=== PATIENT | female | born 1945 | race African-American/Black ===

== ENCOUNTER 2017-05-03 09:33 | Emergency (ER) | payer MEDICARE ==
[~2017-05-03] VITALS: Ht 177.8 cm; Wt 81.2 kg
[2017-05-03] MEDS ORDERED: SODIUM CHLORIDE 0.9% 1000ML 1,000 ML IV STA (09:52)
[2017-05-03] MEDS ORDERED: ONDANSETRON HCL INJ 2 MG/ML VIAL IV STA (09:52)
[2017-05-03] MEDS ORDERED: KETOROLAC TROMETHAMINE 30 MG/ML VIAL IV STA (09:52)
[2017-05-03] MEDS ORDERED: MORPHINE SULFATE 2 MG/ML SYR IV STA (09:52)
[2017-05-03 10:09] LABS: BASOPHILS % 0.2 % (0.0-1.0); EOSINOPHILS % 0.2 % (0.0-6.0); HEMOGLOBIN 11.6 g/dL (12.0-16.0); LYMPHOCYTES # (AUTO) 1.4 (1.0-3.2); MEAN CORPUSCULAR HEMOGLOBIN 28.6 pg (28-32); MEAN CORPUSCULAR HGB CONC 33.1 g/dL (31-35); MEAN CORPUSCULAR VOLUME 86.4 fL (81-99); MONOCYTES # (AUTO) 0.7 (0.2-0.8); MONOCYTES % 7.7 % (4.4-11.3); NEUTROPHILS # (AUTO) 7.2 (2.1-6.9); NEUTROPHILS % 76.6 % (38.7-80.0); PLATELET COUNT 198 x10e3/uL (140-360); RED BLOOD COUNT 4.05 x10e6/uL (3.6-5.1); RED CELL DISTRIBUTION WIDTH 13.4 % (11.7-14.4)
[2017-05-03 10:12] LABS: BILIRUBIN,URINE NEGATIVE (NEGATIVE); KETONES,URINE NEGATIVE (NEGATIVE); LEUKOCYTE ESTERASE ,URINE NEGATIVE (NEGATIVE); NITRITE,URINE NEGATIVE (NEGATIVE); PROTEIN,URINE DIPSTICK NEGATIVE (NEGATIVE); URINE UROBILINOGEN 0.2 mg/dL (0.2 - 1)
[2017-05-03 10:15] LABS: CLARITY,URINE SL CLOUDY (CLEAR); COLOR,URINE YELLOW (YELLOW)
[2017-05-03 10:25] LABS: EPITHELIAL CELLS,URINE RARE /LPF
[2017-05-03 10:26] LABS: ALANINE AMINOTRANSFERASE 19 IU/L (0-55); ALBUMIN 3.7 g/dL (3.5-5.0); ALBUMIN/GLOBULIN RATIO 0.9 (0.8-2.0); ALKALINE PHOSPHATASE 93 IU/L (40-150); ANION GAP 15.9 mmol/L (8-16); BLOOD UREA NITROGEN 12 mg/dL (7-26); BUN/CREATININE RATIO 12 (6-25); CALCIUM 10.2 mg/dL (8.4-10.2); CARBON DIOXIDE 24 mmol/L (22-29); CHLORIDE 104 mmol/L (98-107); CREATININE, SERUM 1.03 mg/dL (0.57-1.11); EST GLOMERULAR FILTRATION RATE > 60 ML/MIN (60-); GLUCOSE 175 mg/dL (74-118); LIPASE 16 U/L (8-78); POTASSIUM 3.9 mmol/L (3.5-5.1); SODIUM 140 mmol/L (136-145)
--- NOTE | 2017-05-03 11:06 | Diagnostic Imaging Report ---
PROCEDURE: CT ABDOMEN AND PELVIS WITHOUT CONTRAST TECHNIQUE: The abdomen and pelvis were scanned utilizing a multidetector helical scanner from the diaphragm to the lesser trochanter after the oral administration without IV or oral contrast material. Coronal and sagittal multiplanar reformations were obtained. DLP: 469.08 COMPARISON: None. INDICATIONS: LEFT FLANK PAIN FINDINGS: ABSENCE OF INTRAVENOUS CONTRAST DECREASES SENSITIVITY FOR DETECTION OF FOCAL LESIONS AND VASCULAR PATHOLOGY. LOWER THORAX: Normal. HEPATOBILIARY: No focal hepatic lesions. No biliary ductal dilatation. SPLEEN: No splenomegaly. PANCREAS: No focal masses or ductal dilatation. ADRENALS: No adrenal nodules. KIDNEYS/URETERS: No hydronephrosis, stones or solid mass lesions. PELVIC ORGANS/BLADDER: Unremarkable. PERITONEUM / RETROPERITONEUM: No free air or fluid. LYMPH NODES: No lymphadenopathy. VESSELS: Minimal atherosclerotic vascular calcification. GI TRACT: No distention or wall thickening. Diverticulosis without findings to suggest diverticulitis. BONES AND SOFT TISSUES: Lower spine facet arthrosis. IMPRESSION: 1. No acute abnormality within the abdomen or pelvis. 2. No evidence of calcified renal, ureteral or bladder stones. 3. Diverticulosis without evidence of suggest diverticulitis. Reginald Brasher D.O. Dictated by: Reginald Brasher D.O. on 05/03/2017 at 11:06 Electronically approved by: Reginald Brasher D.O. on 05/03/2017 at 11:06
[2017-05-03 12:46] VITALS: BP 120/57
[2017-05-08] MEDS ORDERED: LEVAQUIN500 MG PO (08:02)
[2017-05-08] MEDS ORDERED: FLAGYL500 MG PO (08:02)
[2017-05-08] MEDS ORDERED: PANTOPRAZOLE SO40 MG PO (08:02)
[2017-05-08] MEDS ORDERED: FERROUS SULFAT325 MG PO (08:06)
== END 2017-05-03 12:55 | disposition home or self-care (01) ==
LOC: ER 09:33
DX: M54.5 Low back pain (principal); I10 Essential (primary) hypertension; E78.5 Hyperlipidemia, unspecified
CPT/HCPCS: 36415; 74176; 80053; 81001; 83690; 85025; 93005; 96360; 96374; 99284; J1885; J2270; J2405; J7030

== ENCOUNTER 2017-05-06 07:01 | Inpatient (IN) | payer MEDICARE ==
[~2017-05-06] VITALS: Ht 177.8 cm; Wt 83.9 kg
--- OUTSIDE RECORDS SUMMARY | 2017-05-06 07:03 | XMS REPORT | Continuity of Care Document ---
Author Author [facility] Organization [facility] Address [address] [place] [address] Phone Unavailable Care Team Providers Care Lay Out Maker Name Role Phone TANGELA CEJA MD PCP Advance Directives No advance directive information available. Problems No problem information available. Medications No medication information available. Social History Smoking Status Start Date Stop Date Never Smoker Hospital Discharge Instructions No hospital discharge instruction information available. Plan of Care Discharge Date 05/03/17 12:55pm Disposition HOME, SELF-CARE Condition at Discharge Stable Instructions/Education Provided Back Pain Forms Provided Work/School Excuse Prescriptions See Medication Section Referrals TANGELA CEJA MD Address: [address] [facility] [address] [place] [address] Additional Instructions/Education Your diagnosis today is Acute Low Back Pain. Take Tylenol #3 for pain as needed and Robaxin for muscle spasms/pain as needed. Follow up with your doctor in 2 days. Return to ER for any worsening symptoms such as increased pain, bowel/bladder incintinence, pelvic numbness or fever. Functional Status No functional status information available. Allergies, Adverse Reactions, Alerts No known allergies. Immunizations No immunization information available. Vital Signs Acute Vital Signs Vital Response Date/Time Respiratory Rate 14 bpm (12 - 24) 05/03/2017 12:46pm Blood Pressure 120/57 mm Hg 05/03/2017 12:46pm Height 5 ft 10 in 05/03/2017 9:55am Weight 179 lb 05/03/2017 9:55am Body Mass Index 25.7 kg/m^2 05/03/2017 9:55am Results Laboratory Results Test Name Result Units Flags Reference Collection Date/Time Result Date/ Time Comments White Blood Count 9.40 x10e3/uL 4.8-10.8 05/03/2017 10:00am 05/03/2017 10:16am Red Blood Count 4.05 x10e6/uL 3.6-5.1 05/03/2017 10:00am 05/03/2017 10: 16am Hemoglobin 11.6 g/dL L 12.0-16.0 05/03/2017 10:00am 05/03/2017 10:16am Hematocrit 35.0 % 34.2-44.1 05/03/2017 10:00am 05/03/2017 10:16am Mean Corpuscular Volume 86.4 fL 81-99 05/03/2017 10:00am 05/03/2017 10: 16am Mean Corpuscular Hemoglobin 28.6 pg 28-32 05/03/2017 10:00am 2017 10:16am Mean Corpuscular Hemoglobin Concent 33.1 g/dL 31-35 05/03/2017 10:00am 05/03/2017 10:16am Red Cell Distribution Width 13.4 % 11.7-14.4 05/03/2017 10:00am 2017 10:16am Platelet Count 198 x10e3/uL 140-360 05/03/2017 10:00am 05/03/2017 10: 16am Neutrophils (%) (Auto) 76.6 % 38.7-80.0 05/03/2017 10:00am 05/03/2017 10:16am Lymphocytes (%) (Auto) 15.0 % L 18.0-39.1 05/03/2017 10:00am 05/03/2017 10:16am Monocytes (%) (Auto) 7.7 % 4.4-11.3 05/03/2017 10:00am 05/03/2017 10: 16am Eosinophils (%) (Auto) 0.2 % 0.0-6.0 05/03/2017 10:00am 05/03/2017 10: 16am Basophils (%) (Auto) 0.2 % 0.0-1.0 05/03/2017 10:00am 05/03/2017 10: 16am IM GRANULOCYTES % 0.3 % 0.0-1.0 05/03/2017 10:00am 05/03/2017 10:16am Neutrophils # (Auto) 7.2 H 2.1-6.9 05/03/2017 10:00am 05/03/2017 10: 16am Lymphocytes # (Auto) 1.4 1.0-3.2 05/03/2017 10:00am 05/03/2017 10: 16am Monocytes # (Auto) 0.7 0.2-0.8 05/03/2017 10:00am 05/03/2017 10:16am Eosinophils # (Auto) 0.0 0.0-0.4 05/03/2017 10:00am 05/03/2017 10: 16am Basophils # (Auto) 0.0 0.0-0.1 05/03/2017 10:00am 05/03/2017 10:16am Absolute Immature Granulocyte (auto 0.03 x10e3/uL 0-0.1 05/03/2017 10: 00am 05/03/2017 10:16am Urine Color YELLOW YELLOW 05/03/2017 10:00am 05/03/2017 10:15am Urine Clarity SL CLOUDY CLEAR 05/03/2017 10:00am 05/03/2017 10:15am Urine Specific [place] 1.010 1.010-1.025 05/03/2017 10:00am 2017 10:15am Urine pH 8 H 5 - 7 05/03/2017 10:00am 05/03/2017 10:15am Urine Leukocyte Esterase NEGATIVE NEGATIVE 05/03/2017 10:00am 2017 10:15am Urine Nitrite NEGATIVE NEGATIVE 05/03/2017 10:00am 05/03/2017 10: 15am Urine Protein NEGATIVE NEGATIVE 05/03/2017 10:00am 05/03/2017 10: 15am Urine Glucose (UA) NEGATIVE NEGATIVE 05/03/2017 10:00am 05/03/2017 10 :15am Urine Ketones NEGATIVE NEGATIVE 05/03/2017 10:00am 05/03/2017 10: 15am Urine Urobilinogen 0.2 mg/dL 0.2 - 1 05/03/2017 10:00am 05/03/2017 10: 15am Urine Bilirubin NEGATIVE NEGATIVE 05/03/2017 10:00am 05/03/2017 10: 15am Urine Blood NEGATIVE NEGATIVE 05/03/2017 10:00am 05/03/2017 10:15am Urine WBC NONE /HPF 0-5 05/03/2017 10:00am 05/03/2017 10:25am Urine RBC NONE /HPF 0-5 05/03/2017 10:00am 05/03/2017 10:25am Urine Bacteria NONE /HPF NONE 05/03/2017 10:00am 05/03/2017 10:25am Urine Epithelial Cells RARE /LPF NONE 05/03/2017 10:00am 05/03/2017 10: 25am Sodium Level 140 mmol/L 136-145 05/03/2017 10:00am 05/03/2017 10:27am Potassium Level 3.9 mmol/L 3.5-5.1 05/03/2017 10:00am 05/03/2017 10: 27am Chloride Level 104 mmol/L 98-107 05/03/2017 10:00am 05/03/2017 10:27am Carbon Dioxide Level 24 mmol/L 22-29 05/03/2017 10:00am 05/03/2017 10: 27am Anion Gap 15.9 mmol/L 8-16 05/03/2017 10:00am 05/03/2017 10:27am Blood Urea Nitrogen 12 mg/dL 7-26 05/03/2017 10:00am 05/03/2017 10: 27am Creatinine 1.03 mg/dL 0.57-1.11 05/03/2017 10:00am 05/03/2017 10:27am BUN/Creatinine Ratio 12 6-25 05/03/2017 10:00am 05/03/2017 10:27am Estimat Glomerular Filtration Rate > 60 ML/MIN 60- 05/03/2017 10:00am 05/03/2017 10:27am Ranges were taken from the National Kidney Disease Education Program and the National Kid[employer] Foundation literature. Reference ranges: 60 or greater: Normal 16-59 (for 3 consecutive months): Chronic kidney disease 15 or less: Kidney failure Glucose Level 175 mg/dL H 74-118 05/03/2017 10:00am 05/03/2017 10:27am Calcium Level 10.2 mg/dL 8.4-10.2 05/03/2017 10:00am 05/03/2017 10: 27am Total Bilirubin 0.6 mg/dL 0.2-1.2 05/03/2017 10:00am 05/03/2017 10: 27am Aspartate Amino Transf (AST/SGOT) 23 IU/L 5-34 05/03/2017 10:00am 05/03 10:27am Alanine Aminotransferase (ALT/SGPT) 19 IU/L 0-55 05/03/2017 10:00am 04/2017 10:27am Total Protein 7.8 g/dL 6.5-8.1 05/03/2017 10:00am 05/03/2017 10:27am Albumin 3.7 g/dL 3.5-5.0 05/03/2017 10:00am 05/03/2017 10:27am Globulin 4.1 g/dL H 2.3-3.5 05/03/2017 10:00am 05/03/2017 10:27am Albumin/Globulin Ratio 0.9 0.8-2.0 05/03/2017 10:00am 05/03/2017 10: 27am Alkaline Phosphatase 93 IU/L 40-150 05/03/2017 10:00am 05/03/2017 10: 27am Lipase 16 U/L 8-78 05/03/2017 10:00am 05/03/2017 10:27am Procedures Procedure Status Date Provider(s) CT of abdomen and pelvis without contrast Active 05/03/17 EDILBERTO NCIOLE MD Encounters Encounter Location Arrival/Admit Date Discharge/Depart Date Attending Provider Departed Emergency Room [facility] 05/03/17 9:33am 12:55pm EDILBERTO NICOLE MD
--- OUTSIDE RECORDS SUMMARY | 2017-05-06 07:03 | XMS REPORT ---
Author Author [facility] Address Unknown Phone Unavailable Care Team Providers Care Hot Stone Setter Name Role Phone EDILBERTO NICOLE Unavailable Unavailable Problems This patient has no known problems. Allergies, Adverse Reactions, Alerts This patient has no known allergies or adverse reactions. Medications This patient has no known medications. Results Test Description Test Time Test Comments Text Results Atomic Results Result Comments CT ABDOMEN/PELVIS WO [place] [address] Patient Name: ROC BERMUDEZ MR #: [id number] : 1945 Age/Sex: 72/F Req #: [id number] Adm Physician: Ordered by: EDILBERTO NICOLE MD Report #: [id number] Location: ER Room/Bed: Procedure: [id number] CT/CT ABDOMEN/PELVIS WO Exam Date: 05/03/17 Exam Time: 1015 REPORT STATUS: Signed PROCEDURE: CT ABDOMEN AND PELVIS WITHOUT CONTRAST TECHNIQUE: The abdomen and pelvis were scanned utilizing a multidetector helical scanner from the diaphragm to the lesser trochanter after the oral administration without IV or oral contrast material. Coronal and sagittal multiplanar reformations were obtained. DLP: 469.08 COMPARISON: None. INDICATIONS: LEFT FLANK PAIN FINDINGS: ABSENCE OF INTRAVENOUS CONTRAST DECREASES SENSITIVITY FOR DETECTION OF FOCAL LESIONS AND VASCULAR PATHOLOGY. LOWER THORAX: Normal. HEPATOBILIARY: No focal hepatic lesions. No biliary ductal dilatation. SPLEEN: No splenomegaly. PANCREAS: No focal masses or ductal dilatation. ADRENALS: No adrenal nodules. KIDNEYS/URETERS: No hydronephrosis, stones or solid mass lesions. PELVIC ORGANS/BLADDER: Unremarkable. PERITONEUM / RETROPERITONEUM: No free air or fluid. LYMPH NODES: No lymphadenopathy. VESSELS: Minimal atherosclerotic vascular calcification. GI TRACT: No distention or wall thickening. Diverticulosis without findings to suggest diverticulitis. BONES AND SOFT TISSUES: Lower spine facet arthrosis. IMPRESSION: 1. No acute abnormality within the abdomen or pelvis. 2. No evidence of calcified renal, ureteral or bladder stones. 3. Diverticulosis without evidence of suggest diverticulitis. Pankaj Campbell D.O. Dictated by: Pankaj Campbell D.O. on 2017 at 11:06 Electronically approved by: Pankaj Campbell D.O. on 2017 at 11:06 Dictated By: PANKAJ CAMPBELL DO [id number] Transcribed By: GEMMA on 05/03/17 1106 COPY TO: EDILBERTO NICOLE MD
[2017-05-06] MEDS ORDERED: OXYMETAZOLINE HCL 0.05% NAS 1 SPRAY BTL ONE (07:15)
[2017-05-06] MEDS ORDERED: PHENYLEPHRINE HCL 1% NA SPR 15 ML BTL ONE (07:36)
[2017-05-06] MEDS ORDERED: SODIUM CHLORIDE 0.9% 1000ML 1,000 ML IV STA (07:37)
[2017-05-06] MEDS ORDERED: PANTOPRAZOLE 40 MG 10ML VIAL IV STA (07:37)
[2017-05-06 07:47] LABS: BASOPHILS % 0.1 % (0.0-1.0); LYMPHOCYTES # (AUTO) 0.9 (1.0-3.2); LYMPHOCYTES % 7.6 % (18.0-39.1); MEAN CORPUSCULAR HEMOGLOBIN 28.3 pg (28-32); MEAN CORPUSCULAR VOLUME 85.7 fL (81-99); MONOCYTES # (AUTO) 0.7 (0.2-0.8); MONOCYTES % 5.9 % (4.4-11.3); NEUTROPHILS # (AUTO) 10.2 (2.1-6.9); PLATELET COUNT 205 x10e3/uL (140-360); RED CELL DISTRIBUTION WIDTH 12.8 % (11.7-14.4)
[2017-05-06] MEDS ORDERED: ONDANSETRON HCL INJ 2 MG/ML VIAL IV STA (07:51)
[2017-05-06 08:00] LABS: INR 1.18; PROTHROMBIN TIME 14.1 seconds (11.9-14.5)
[2017-05-06 08:01] LABS: PARTIAL THROMBOPLASTIN TIME 29.9 seconds (23.8-35.5)
[2017-05-06 08:07] LABS: ALANINE AMINOTRANSFERASE 20 IU/L (0-55); ALBUMIN/GLOBULIN RATIO 0.7 (0.8-2.0); ALKALINE PHOSPHATASE 69 IU/L (40-150); BLOOD UREA NITROGEN 14 mg/dL (7-26); BUN/CREATININE RATIO 18 (6-25); CALCIUM 9.7 mg/dL (8.4-10.2); CARBON DIOXIDE 22 mmol/L (22-29); CHLORIDE 95 mmol/L (98-107); CREATININE, SERUM 0.78 mg/dL (0.57-1.11); EST GLOMERULAR FILTRATION RATE > 60 ML/MIN (60-); GLUCOSE 148 mg/dL (74-118); HEMOGLOBIN 9.9 g/dL (12.0-16.0); SODIUM 125 mmol/L (136-145)
[2017-05-06] MEDS ORDERED: SODIUM CHLORIDE FLUSH 10 ML SYR INJ PRN (09:00)
[2017-05-06] MEDS: METRONIDAZOLE 500MG/NS 100ML 100 ML IV SCH ×2 (09:15→16:33)
[2017-05-06] MEDS: LEVOFLOXACIN 750MG/D5W 150ML 150 ML IV SCH (10:15)
[2017-05-06] MEDS ORDERED: LOSARTAN POTASS25 MG PO (12:15)
[2017-05-06] MEDS ORDERED: CARVEDILOL12.5 MG PO (12:15)
[2017-05-06] MEDS ORDERED: VITAMIN D31000 UNIT PO (12:15)
[2017-05-06] MEDS ORDERED: MULTIVITAMINS1 EAC7 PO (12:15)
[2017-05-06] MEDS ORDERED: PRAVASTATIN SOD10 MG PO (12:15)
[2017-05-06] MEDS ORDERED: FISH OIL PO (12:15)
[2017-05-06 13:22] VITALS: BP 173/74
[2017-05-06 14:23] VITALS: BP 173/74
[2017-05-06 16:05] VITALS: BP 152/66
[2017-05-06] MEDS: CARVEDILOL 12.5 MG TAB PO SCH (16:33)
[2017-05-06] MEDS ORDERED: PEG (High)/E-LYTE SOLN 4,000 ML BTL PO ONE (18:00)
[2017-05-06] MEDS ORDERED: BISACODYL 5 MG TAB EC PO ONE (18:00)
[2017-05-06 18:24] LABS: HEMATOCRIT 27.7 % (34.2-44.1); HEMOGLOBIN 9.1 g/dL (12.0-16.0)
--- NOTE | 2017-05-06 18:47 | Consultation ---
DATE OF CONSULTATION: May 06, 2017 This is a 72-year-old female very well known to me who has history of diverticulosis, presented to the hospital because of problems with rectal bleeding, bright red blood per rectum. The patient had a CAT scan done a few days ago, which showed diverticulosis without diverticulitis. He denies any abdominal pain at this point. Her workup so far revealed that her hemoglobin is 9.9, WBC 11.8. Sodium 125 and is normal. Her other medical problems are significant for hypertension, history of hyperlipidemia. ALLERGIES: NONE. SOCIAL HISTORY: Denies any alcohol use. HOME MEDICATIONS: Carvedilol, vitamin D3, losartan, multivitamins and . REVIEW OF SYSTEMS: Denies any chest pain. Denies any shortness of breath. Denies any dysphagia or odynophagia. Denies any dysuria or hematuria or any kind of syncopal episode. PHYSICAL EXAMINATION GENERAL: The patient is awake, alert, appears to be stable and not in any acute distress. VITAL SIGNS: Afebrile. HEENT: Normocephalic, atraumatic. Sclerae anicteric. NECK: Supple. HEART: Sounds regular. LUNGS: Clear. ABDOMEN: Soft. There is no distention at this point, is nontender. EXTREMITIES: No edema or clubbing. LABORATORY DATA: WBC 11.8, hemoglobin 9.9, sodium 125, BUN and creatinine is 14 and 0.7. IMPRESSION 1. Rectal bleeding, likely diverticular bleeding. 2. Hypertension. PLAN: Continue current care at this point. Follow labs and perform colonoscopy for further evaluation tomorrow and follow clinically. Job#: [id number] cc:TANGELA CEJA MD
[2017-05-06 20:00] VITALS: BP 140/65
[2017-05-06] MEDS ORDERED: SODIUM CHLORIDE 0.9% 250ML 250 ML ONE (23:56)
[2017-05-07] VITALS (8 sets, daily range): BP systolic 109–163; BP diastolic 60–72
[2017-05-07] MEDS: METRONIDAZOLE 500MG/NS 100ML 100 ML IV SCH ×4 (00:33→23:15)
[2017-05-07] MEDS ORDERED: LOSARTAN POTASSIUM 25 MG TAB PO PRN (04:15)
[2017-05-07] MEDS: SODIUM CHLORIDE 0.9% 1000ML 1,000 ML IV SCH ×2 (04:41→16:57)
--- NOTE | 2017-05-07 05:53 | History and Physical ---
PRIMARY CARE PHYSICIAN: Dr. March CHIEF COMPLAINT: Rectal bleeding. HISTORY OF PRESENT ILLNESS: This is a 72-year-old woman with a history of hypertension, who last week on Saturday went to the emergency room due to lower back and abdominal pain. She was started on pain medication and given IV treatment, and then went home from the ER. Patient returned on Saturday after developing rectal bleeding, which she states was severe with a lot of bright red blood. She denies any melena in the past few weeks. She states that the rectal bleeding stopped yesterday. The abdominal pain also resolved. Her last colonoscopy was 5 years ago, which she states showed no polyps. Prior to that, it showed 2 polyps. She does not use any aspirin, Plavix or any anticoagulants. Here she was found to have moderate anemia. She was admitted for further evaluation and management. PAST MEDICAL HISTORY: Hypertension, hyperlipidemia. PAST SURGICAL HISTORY: Hysterectomy, tubal ligation at age 31, appendectomy at age 16. ALLERGIES: PER ELECTRONIC MEDICAL RECORDS. FAMILY HISTORY/SOCIAL HISTORY: Patient is . She has 1 child. No alcohol, illicits or cigarettes. MEDICATIONS: Per electronic medical record. REVIEW OF SYSTEMS: Denies any dizziness or chest pain. PHYSICAL EXAMINATION VITAL SIGNS: Have been reviewed. GENERAL: A tired-appearing woman resting in bed. HEENT: Anicteric. Pupils respond to light. No oral lesions. CARDIOVASCULAR: Normal S1 and S2. LUNGS: Moderate breath sounds. ABDOMEN: Soft and nondistended. She has mild diffuse tenderness, which is minimal. No rebound or guarding. EXTREMITIES: No edema or calf tenderness. NEUROLOGICAL: Alert and oriented times 3. Moving all extremities. LABS: Reviewed. MEDICATIONS: Reviewed. ASSESSMENT AND PLAN: This is a 72-year-old woman with: 1. Rectal bleeding: Gastroenterology consulted. Will continue intravenous Protonix. Follow up H and H. 2. Moderate normocytic anemia: Will obtain anemia panel. 3. Diverticulosis: Could this be a diverticular bleed? Imaging does not show any diverticulitis. Will await endoscopy. 4. Hyponatremia: Rehydrate and reassess. 5. Hypertension: Continue beta yinka. 6. Hyperglycemia and overweight state: Will screen for diabetes and obtain a lipid panel. 7. Prophylaxis: Will use sequential compression devices and proton pump inhibitor. 8. Disposition: Monitor closely. Follow up H and H. Follow up gastroenterology recommendations. Follow up sodium levels. Job#: [id number] [place]
[2017-05-07 07:09] LABS: BASOPHILS % 0.1 % (0.0-1.0); EOSINOPHILS # (AUTO) 0.1 (0.0-0.4); EOSINOPHILS % 0.5 % (0.0-6.0); HEMATOCRIT 27.8 % (34.2-44.1); HEMOGLOBIN 9.2 g/dL (12.0-16.0); LYMPHOCYTES # (AUTO) 2.2 (1.0-3.2); LYMPHOCYTES % 16.8 % (18.0-39.1); MEAN CORPUSCULAR HEMOGLOBIN 28.8 pg (28-32); MEAN CORPUSCULAR HGB CONC 33.1 g/dL (31-35); MEAN CORPUSCULAR VOLUME 86.9 fL (81-99); MONOCYTES # (AUTO) 1.3 (0.2-0.8); MONOCYTES % 10.1 % (4.4-11.3); NEUTROPHILS # (AUTO) 9.4 (2.1-6.9); PLATELET COUNT 200 x10e3/uL (140-360); RED CELL DISTRIBUTION WIDTH 12.8 % (11.7-14.4)
[2017-05-07 07:28] LABS: ANION GAP 13.4 mmol/L (8-16); BLOOD UREA NITROGEN 8 mg/dL (7-26); BUN/CREATININE RATIO 11 (6-25); CALCIUM 9.6 mg/dL (8.4-10.2); CARBON DIOXIDE 24 mmol/L (22-29); CHLORIDE 107 mmol/L (98-107); CREATININE, SERUM 0.76 mg/dL (0.57-1.11); EST GLOMERULAR FILTRATION RATE > 60 ML/MIN (60-); GLUCOSE 101 mg/dL (74-118); POTASSIUM 3.4 mmol/L (3.5-5.1); SODIUM 141 mmol/L (136-145)
[2017-05-07 07:44] LABS: % IRON SATURATION 9 % (15-50); CHOL/HDL RATIO 3.8 (3.0-3.6); CHOLESTEROL 198 MD/DL (0-199); HDL CHOLESTEROL 52 MG/DL (40-60); IRON 17 ug/dL (50-170); LDL CHOLESTEROL 135 MG/DL (60-130); TOTAL IRON BINDING CAPACITY 182 ug/dL (261-478); TRANSFERRIN 130 mg/dL (180-382); TRIGLYCERIDES 55 MG/DL (0-149)
[2017-05-07 08:04] LABS: THYROID STIMULATING HORMONE 2.231 uIU/mL (0.350-4.940)
[2017-05-07] MEDS: PANTOPRAZOLE 40 MG 10ML VIAL IV SCH (08:57)
[2017-05-07] MEDS: MULTIVITAMINS/MINERALS TAB PO SCH (09:00)
[2017-05-07] MEDS: CARVEDILOL 12.5 MG TAB PO SCH ×2 (09:00→16:57)
[2017-05-07] MEDS: CHOLECALCIFEROL 1,000 UNIT TAB PO SCH (09:00)
[2017-05-07] MEDS: LEVOFLOXACIN 750MG/D5W 150ML 150 ML IV SCH (10:30)
[2017-05-07 12:03] LABS: HEMATOCRIT 26.7 % (34.2-44.1); HEMOGLOBIN 9.1 g/dL (12.0-16.0)
[2017-05-07] MEDS ORDERED: PROPOFOL IV EMULSION 10 MG/ML 20 ML VIAL ONE (13:19)
[2017-05-07] MEDS ORDERED: ACETAMINOPHEN 325 MG TAB PO PRN (13:45)
[2017-05-07] MEDS ORDERED: FENTANYL CITRATE/PF 100MCG/2 ML INJ ONE (14:52)
[2017-05-07] MEDS ORDERED: MIDAZOLAM HCL 2 MG/2 ML VIAL ONE (14:52)
[2017-05-07 18:14] LABS: HEMATOCRIT 26.8 % (34.2-44.1); HEMOGLOBIN 8.9 g/dL (12.0-16.0)
[2017-05-07] MEDS ORDERED: PRAVASTATIN 20 MG TAB PO SCH (21:00)
[2017-05-08 00:13] VITALS: BP 139/62
[2017-05-08 05:13] VITALS: BP 140/60
[2017-05-08 07:07] LABS: HEMATOCRIT 27.4 % (34.2-44.1); HEMOGLOBIN 8.8 g/dL (12.0-16.0)
[2017-05-08 07:35] VITALS: BP 142/65
[2017-05-08 07:54] LABS: ANION GAP 11.6 mmol/L (8-16); BLOOD UREA NITROGEN 11 mg/dL (7-26); BUN/CREATININE RATIO 14 (6-25); CALCIUM 8.9 mg/dL (8.4-10.2); CARBON DIOXIDE 25 mmol/L (22-29); CHLORIDE 108 mmol/L (98-107); CREATININE, SERUM 0.76 mg/dL (0.57-1.11); EST GLOMERULAR FILTRATION RATE > 60 ML/MIN (60-); GLUCOSE 91 mg/dL (74-118); POTASSIUM 3.6 mmol/L (3.5-5.1); SODIUM 141 mmol/L (136-145)
[2017-05-08] MEDS ORDERED: PANTOPRAZOLE SO40 MG PO (08:02)
[2017-05-08] MEDS ORDERED: FLAGYL500 MG PO (08:02)
[2017-05-08] MEDS ORDERED: LEVAQUIN500 MG PO (08:02)
[2017-05-08] MEDS ORDERED: FERROUS SULFAT325 MG PO (08:06)
[2017-05-08 08:08] VITALS: BP 142/65
--- NOTE | 2017-05-08 08:25 | Discharge Summary ---
PRINCIPAL DIAGNOSES 1. Acute ischemic colitis. 2. Rectal bleeding. 3. Diverticulosis. 4. Normocytic anemia, moderate. 5. Hyponatremia. 6. Hypertension. 7. Hyperglycemia with overweight state. Hemoglobin A1c 5.5, LDL 135 and triglycerides 55. 8. Iron deficiency anemia with iron level of 17, percent saturation of 9. SECONDARY DIAGNOSIS: Hypertension. CHIEF COMPLAINT: Rectal bleeding. HISTORY OF PRESENT ILLNESS: A 72-year-old woman with rectal bleeding. Refer to the H and P for further details. HOSPITAL COURSE: This is a 72-year-old woman who developed rectal bleeding. Underwent endoscopy that showed ischemic colitis. She was treated with PPI and antibiotics. Rectal bleeding has resolved for the past 2 days. She had normocytic anemia, which had remained stable. She had diverticulosis, but no diverticulitis. She had hyponatremia secondary to dehydration. The patient is doing better and currently appropriate for discharge and follow up. Hyponatremia has resolved. The patient is currently appropriate for discharge and follow up. DISCHARGE MEDICATIONS: Per electronic medical record. Ferrous sulfate, Flagyl, Levaquin for 5 days, and Protonix. FOLLOWUP: Primary care doctor in [address] San in 1 month. CONDITION ON DISCHARGE: Stable and improved. DISCHARGE LOCATION: Home. DISCHARGE INSTRUCTIONS: Small portion sizes for the next 5 days. MELISSA SPARKS MD Job#: [id number] [place]
[2017-05-08] MEDS: MULTIVITAMINS/MINERALS TAB PO SCH (09:00)
[2017-05-08] MEDS: PANTOPRAZOLE 40 MG 10ML VIAL IV SCH (09:00)
[2017-05-08] MEDS: CHOLECALCIFEROL 1,000 UNIT TAB PO SCH (09:00)
[2017-05-08] MEDS: CARVEDILOL 12.5 MG TAB PO SCH (09:00)
[2017-05-08] MEDS: METRONIDAZOLE 500MG/NS 100ML 100 ML IV SCH (10:00)
[2017-05-08] MEDS: LEVOFLOXACIN 750MG/D5W 150ML 150 ML IV SCH (11:00)
[2017-05-08 11:43] VITALS: BP 116/56
[2017-05-08 12:06] LABS: HEMATOCRIT 25.4 % (34.2-44.1); HEMOGLOBIN 8.5 g/dL (12.0-16.0)
== END 2017-05-08 15:19 | disposition home or self-care (01) | DRG 394 ==
LOC: ER 07:01 → ERHOLD 11:02 → MED/SURG3 12:19
PROVIDERS: ADMIT Internal Medicine; ATTEND Internal Medicine
PROC: 0DBM8ZX Excision of Descending Colon, Via Natural or Artificial Opening Endoscopic, Diagnostic (ICD-10-PCS; principal; 2017-05-07 12:30)
DX: K55.9 Vascular disorder of intestine, unspecified (principal); E87.1 Hypo-osmolality and hyponatremia; I10 Essential (primary) hypertension; K57.32 Diverticulitis of large intestine without perforation or abscess without bleeding; D50.9 Iron deficiency anemia, unspecified; K57.90 Diverticulosis of intestine, part unspecified, without perforation or abscess without bleeding; K64.8 Other hemorrhoids; E86.0 Dehydration
CPT/HCPCS: 36415; 45378; 45380; 80048; 80053; 80061; 82728; 83036; 83540; 84443; 84466; 85014; 85018; 85025; 85610; 85730; 86850; 86900; 88305; 93005; 96360; 96365; 96374; 99284; J2250; J2405; J7030; J7050

== ENCOUNTER 2017-12-03 14:04 | Emergency (ER) | payer MEDICARE ==
[~2017-12-03] VITALS: Ht 177.8 cm; Wt 83.9 kg
[~2017-12-03 14:04] MED LIST: CARVEDILOL12.5 MG PO; FERROUS SULFAT325 MG PO; FISH OIL PO; FLAGYL500 MG PO; LEVAQUIN500 MG PO; LOSARTAN POTASS25 MG PO; MULTIVITAMINS1 EAC7 PO; PANTOPRAZOLE SO40 MG PO; PRAVASTATIN SOD10 MG PO; VITAMIN D31000 UNIT PO
[2017-12-03] MEDS ORDERED: TRAMADOL HCL 50 MG TAB PO ONE (17:00)
== END 2017-12-03 18:01 | disposition left against medical advice (07) ==
LOC: ER 14:04
DX: S09.90XA Unspecified injury of head, initial encounter (principal)

== ENCOUNTER 2019-10-20 20:25 | Emergency (ER) | payer SELFPAY ==
--- OUTSIDE RECORDS SUMMARY | 2019-10-20 21:34 | XMS REPORT | Summary of Care ---
Author Author [facility] [place] Organization [facility] [place] Address Unknown Phone Unavailable Encounter [facility] Ezekiel(FIN) [id number] Date(s): 01/27/18 - 01/27/18 [facility] - [address] [address] [phone] Encounter Diagnosis Age-related osteoporosis without current pathological fracture (Final) - 01/31/18 Asymptomatic menopausal state (Final) - Discharge Disposition: Home or Self Care Attending Physician: Raul March MD Referring Physician: Raul March MD Vital Signs No data available for this section Problem List Condition Effective Dates Status Health Status Informan t High blood Resolved pressure(Confirmed) Hypercholesteremia(C Resolved onfirmed) Allergies, Adverse Reactions, Alerts No Known Medication Allergies Medications No data available for this section Results No data available for this section Immunizations No data available for this section Procedures Procedure Date Related Diagnosis Body Site Status Hysterectomy Completed Social History Social History Type Response Smoking Status Never smoker; Previous john tment: None; Exposure to Tobacco Smoke None; Cigarette Smoking Last 365 Days No; Reg Smoking Cessation Counseling No entered on: 12/03/17 Assessment and Plan No data available for this section
--- OUTSIDE RECORDS SUMMARY | 2019-10-20 21:34 | XMS REPORT | Summary of Care ---
Author Author [facility] [place] Organization [facility] [place] Address Unknown Phone Unavailable Encounter [facility] Ezekiel(FIN) [id number] Date(s): 05/31/17 - 05/31/17 [facility] Outpatient Imaging - [address] [address] [phone] Encounter Diagnosis Pain in left shoulder (Final) - 06/06/17 Primary osteoarthritis, left shoulder (Final) - Bursitis of left shoulder (Final) - Discharge Disposition: Home or Self Care Attending Physician: Raul March MD Vital Signs No data available for this section Problem List Condition Effective Dates Status Health Status Informan t High blood Resolved pressure(Confirmed) Hypercholesteremia(C Resolved onfirmed) Allergies, Adverse Reactions, Alerts Substance Reaction Severity Status NKDA Active Medications No data available for this section Results No data available for this section Immunizations No data available for this section Procedures Procedure Date Related Diagnosis Body Site Status Hysterectomy Completed Social History Social History Type Response Smoking Status Never smoker; Previous john tment: None; Exposure to Tobacco Smoke None; Cigarette Smoking Last 365 Days No; Reg Smoking Cessation Counseling No entered on: 01/18/17 Assessment and Plan No data available for this section
--- OUTSIDE RECORDS SUMMARY | 2019-10-20 21:34 | XMS REPORT | Continuity of Care Document ---
Author Author [employer] 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 Name Role Phone [employer] Information [employer] Unavailable Un available Problems Problem Status Onset Date Classification Date Reported Comments Source Cough 04/1004/12/2019 [facility] Acute upper respiratory infection, unspecified 04/10/2019 04/12/2019 [facility] COUGH Active 04/10/2019 [facility] Age-related osteoporosis without current pathological fracture 01/31/2018 08/17/2018 [facility] [place] FALL HEAD INJURY Active 12/03/2017 [facility] Unspecified injury of head, initial encounter 12/03/2017 06/22/2018 [facility] Pain in left shoulder 06/07/2017 09/06/2017 [facility] [place] Unspecified asthma, uncomplicated 01/18/2017 01/21/2017 [facility] Acute laryngitis 12/27/2016 12/30/2016 [facility] THROAT PAIN Active 12/27/2016 [facility] HEADACE/FAINT Active 08/23/2013 [facility] Discharge Diagnosis: Acute hyperventilation 08/23/2013 08/25/2013 [facility] UPPER THIGH PAIN, MERALGIA PAESTHETIGA Active 03/07/2011 [facility] Hypertensive disorder, systemic arterial (disorder) Resolved Problem 04/12/2019 [facility] [place] Primary osteoarthritis, left shoulder 09/06/2017 [facility] [place] Bursitis of left shoulder 09/06/2017 [facility] [place] Asymptomatic menopausal state 08/17/2018 [facility] [place] Hypercholesterolemia (disorder) Resolved Problem 11/2019 [facility] [place] a Fall from bed, initial encounter 06/22/2018 [facility] Essential (primary) hypertension 06/22/2018 [facility] Medications Medication Details Route Status Patient Instructions Ordering Provider Order Date Source benzonatate 200 MG Oral Capsule [Tessalon] 200 mg = 1 cap, PO, TID, X 7 day, # 21 cap, 0 Refill(s) Active 04/10/2019 [facility] Tylenol 650 mg, Route: PO, Rusty g form: TAB, ONCE, Dosing Weight 84.545, kg, Priority: STAT, Start date: 12/03/17 17:54:00 CDT, Stop date: 12/03/17 17:54:00 CDT Inactiv e 12/03/2017 [facility] predniSONE 20 mg oral tablet 2 0 mg = 1 tab, PO, BID, Start Saturday., X 4 day, # 8 tab, 0 Refill(s) Active 01/19/2017 [facility] 200 ACTUAT Albuterol 0.09 MG/ACTUAT Mete red Dose Inhaler [ProAir HFA] 2 puff, INHALER, Q4H, PRN for wheezing, # 8.5 gm, 0 Refill(s) Active 01/19/2017 [facility] Albuterol 0.83 MG/ML Inhalant Solution 2.49 mg = 3 mL, INHALATION, Q6H, PRN wheezing, coughing, or shortness of breath, # 1 box, 1 Refill(s) Active 01/19/2017 [facility] Nebulizer 1 ea, MISC, ONCALL, # 1 ea, 0 Refill(s) Active 01/19/2017 [facility] Albuterol 0.833 MG/ML / Ipratropium Brom willow 0.167 MG/ML Inhalant Solution [DuoNeb] 6 mL, Route: NEB, Drug Form: SOLN, Dosin g Weight 83.636, kg, ONCE, PRN Respiratory Protocol, Start date: 01/18/17 17:21:00 [employer] 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 Inactive 12/27/2016 [facility] Benadryl 50 mg, 2 tab, Route: PO, Drug form: TAB, ONCE, Dosing Weight 84.091, kg, Priority: STAT, Start date: 12/27/16 0:48:00 CDT, Stop date: 12/27/16 0:48:00 CDT Inactive 12/27/2016 [facility] 200 ACTUAT Albuterol 0.09 MG/ACTUAT Mete red Dose Inhaler [ProAir HFA] 2 puff, INHALER, Q4H, PRN for wheezing, # 8.5 gm, 0 Refill(s) Active 12/21/2016 [facility] predniSONE 20 mg oral tablet 2 0 mg = 1 tab, PO, BID, X 4 day, # 8 tab, 0 Refill(s) Active 12/21/2016 [facility] Robitussin-AC oral syrup 10 ml , PO, Q4H, PRN for cough, Do not take and drive as this med causes sedation., # 120 mL, 0 Refill(s) Active 12/21/2016 [facility] Azithromycin 5 Day Dose Pack 250 mg oral tablet See Instructions, Take 2 tablets by mouth the first day then 1 tablet by mouth days 2-5., X 5 day, # 6 tab, 0 Refill(s) Active 12/21/2016 [facility] Albuterol 0.833 MG/ML / Ipratropium Brom willow 0.167 MG/ML Inhalant Solution [DuoNeb] 3 ml, Route: NEB, Drug Form: Khloe PIERCE g Weight 84.091, kg, ONCE, PRN Respiratory Protocol, Start date: 12/21/16 16:58:00 CDT Inactive 12/21/2016 [facility] Allergies, Adverse Reactions, Alerts Substance Category Reaction Severity Reaction type Status Date Reported Comments Source No Known Medication Allergies Assertion Drug aller gy [facility] Immunizations No Data Provided for This Section Results No Data Provided for This Section Pathology Reports No Data Provided for This Section Diagnostic Reports Report Value Date Source Chest 2 views DX PROCEDURE INF ORMATION: Exam: XR Chest, 2 Views Exam date and time: 04/10/2019 1:20 PM Age: 74 years old Clinical indication: Condition or disease; Additional info: /persistent coughing for over 1 week TECHNIQUE: Imaging protocol: XR of the chest Views: 2 views. Other technique: 2 views, frontal and lateral. COMPARISON: CHEST 2 VIEWS DX 01/18/2017 4:54 PM FINDINGS: Lungs: No infiltrates or other focal abnormalities. Pleural space: No pleural effusions. No pneumothorax. Heart/Mediastinum: The heart is normal in size. Bones/joints: No significant osseous abnormalities are seen. IMPRESSION: No active or acute process within the chest. Arnold Camarillo MD On 04/10/2019 13:35:47; [id number] 04/10/2019 [facility] Bone [facility] [employer] [facility] BONE DENSITY ASSESSMENT: 01/27/2018 CLINICAL DATA: Post menopausal. Age-Related Osteoporosis Without Current Pathological Fracture/M81.0 FINDINGS: Bone density evaluation was performed 01/27/2018 on the right femur neck using a Hologic unit. The BMD average for the exam is 0.612 g/cm2. The T-score is - 2.10 and the Z-score is -0.90. This matches the World Health Organization's criteria for osteopenia and places the patient at a medium risk for fracture. An additional bone density evaluation was performed 01/27/2018 on the left femur neck using a Hologic unit. The BMD average for the exam is 0.648 g/cm2. The T- score is -1.80 and the Z-score is -0.70. This matches the World Health Organization's criteria for osteopenia and places the patient at a medium risk for fracture. An additional bone density evaluation was performed 01/27/2018 on the right hip using a Hologic unit. The BMD average for the exam is 0.715 g/cm2. The T-score is -1.90 and the Z-score is -0.90. This matches the World Health Organization's criteria for osteopenia and places the patient at a medium risk for fracture. An additional bone density evaluation was performed 01/27/2018 on the left hip using a Hologic unit. The BMD average for the exam is 0.706 g/cm2. The T-score is -1.90 and the Z-score is -0.90. This matches the World Health Organization's criteria for osteopenia and places the patient at a medium risk for fracture. An additional bone density evaluation was performed 01/27/2018 on the AP L1-L3 region of spine using a Hologic unit. The BMD average for the exam is 0.738 g/cm2. The T-score is -2.50 and the Z-score is -1.10. This matches the World Health Organization's criteria for osteoporosis and places the patient at a high risk for fracture. IMPRESSION: OSTEOPOROSIS Patient is at high risk for fracture. This exam was interpreted at [id number] for NISA Bello 15. Moise Kurtz M.D., cm/ta:01/27/2018 13:10:52 Iron Molder Helper(s): Nirali Blanchard RT(R)(M), [facility] 01/27/2018 [facility] [place] Brain wo contrast CT Patient N bridger: ROC BERMUDEZ : 1945. Age: 72 years. Gender: Female. MR: [id number]. Location: [facility]. Provider: Mary Gómez. EXAM: Brain wo contrast CT. 12/03/2017 5:54 PM CDT PROVIDED CLINICAL HISTORY: Head trauma after a fall of bed. TECHNIQUE: Contiguous axial images from the skull base to the vertex without intravenous contrast. Coronal and sagittal reformats. EXPOSURE: Total exam DLP is 978.72 mGy-cm. COMPARISON: MR-Brain performed January 02, 2012. FINDINGS: BRAIN: No acute transcortical infarct. No clinically significant white matter disease. No brain parenchymal contusion or edema. No intracranial hemorrhage or other fluid collection. No intracranial mass. Age-consistent brain parenchymal volume. VENTRICLES / CISTERNS / SHIFT: No hydrocephalus. No significant effacement of the basal cisterns or foramen magnum. No significant midline shift. BONES / SCALP: No significant extracranial soft tissue abnormality. No acute depressed fracture of the calvarium or skull base. No aggressive bone lesions. IMAGED SINUSES / MASTOIDS: No significant sinus mucosal thickening. No significant paranasal sinus fluid. No significant fluid in the imaged mastoid air cells. IMPRESSION: 1. No definite CT evidence of acute int racranial abnormality. 2. No acute fracture. 3. No significant interval change of th e intracranial findings allowing for differences between CT and MR. SL: [id number] 12/03/2017 [facility] Shoulder wo contrast MRI EXAMI NATION: MR left shoulder without contrast HISTORY: M25.512 Pain in left shoulder; lateral left shoulder pain and limited range of motion; left rotator cuff tear; left glenohumeral chondrosis COMPARISON: There are no radiographs available for review. TECHNIQUE: Multiplanar, multisequence magnetic resonance imaging of the left shoulder is performed with a local coil. Transverse, oblique coronal, and oblique sagittal images are obtained. FINDINGS: Biceps: The long head of the biceps tendon remains attached at the superior bicipital labral complex without dislocation or subluxation. Labrum: There is degenerative tearing of the anterior labrum with focal irregularity of the labral tissue and abnormal labral morphology. There is also degeneration of the superior glenoid labrum without discrete superior labral tear. Rotator cuff tendons: There is high-grade, partial-thickness, interstitial tearing of the supraspinatus tendon involving both the footprint and critical zone, proximal to the footprint, measuring approximately 2.2 cm in anteroposterior dimension and involving up to 75% of the central tendon thickness. There is underlying severe supraspinatus and mild infraspinatus tendinosis, but the infraspinatus tendon remains intact. The teres minor tendon is intact. There is a moderate grade, partial-thickness, interstitial tear involving the cranial fibers of the subscapularis tendon measuring 1.4 cm in craniocaudal dimension and involving up to 50% of the central tendon thickness. There is underlying moderate subscapularis tendinosis, but no full-thickness subscapularis tendon tear. Muscles: There is normal signal intensity and muscle bulk of the rotator cuff musculature. Acromio-osseous outlet: There is a type II, anterolaterally downsloping acromion without discrete subacromial spur. There is no os acromiale. The coracoacromial and coracoclavicular ligaments are intact. There is mild degenerative arthrosis of the acromioclavicular joint. Bone: Osseous degenerative changes are noted at the acromioclavicular joint. There are no acute fractures. There are no suspicious bone marrow replacing lesions. Cartilage: Again, there is mild degenerative arthrosis of the acromioclavicular joint with associated chondrosis. There is moderate glenohumeral chondrosis with multiple foci of high-grade, deep partial thickness to near full-thickness chondrosis involving the superomedial and medial humeral head and involving the superior and central aspect of the glenoid. Soft tissue: There is a small to moderate amount of fluid in the subacromial- subdeltoid bursa. There is a large glenohumeral joint effusion. There are several cartilaginous loose bodies layering within the posterior aspect of the glenohumeral joint space measuring up to 1 cm in diameter. There is also synovitic debris within the subcoracoid recess. The inferior glenohumeral capsular ligaments are intact. IMPRESSION: 1. High-grade, partial-thickness, inters titial tearing of the left supraspinatus tendon involving both the footprint and critical zone, proximal to the footprint, with measurements as above. There is underlying severe left supraspinatus and mild left infraspinatus tendinosis, but the infraspinatus tendon remains intact and there is no left supraspinatus or infraspinatus muscular fatty atrophy. 2. Moderate grade, partial-thickness, in terstitial tear involving the cranial fibers of the left subscapularis tendon with measurements as above. There is underlying moderate left subscapularis tendinosis, but no full-thickness subscapularis tendon tear and no left subscapularis muscular fatty atrophy. 3. Moderate left glenohumeral chondrosis with multiple foci of high-grade, deep partial thickness to near full-thickness chondrosis involving the superomedial and medial humeral head and involving the superior and central aspect of the glenoid. 4. Degenerative tearing of the anterior left glenoid labrum with focal irregularity of the labral tissue and abnormal labral morphology. There is also degeneration of the superior left glenoid labrum without discrete superior labral tear. 5. Large left glenohumeral joint effusio n with multiple cartilaginous loose bodies layering within the posterior aspect of the glenohumeral joint space, as well as, synovitic debris within the subcoracoid recess. 6. Mild left acromioclavicular degenerat yoli arthrosis. 7. Mild to moderate left subacromial sub deltoid bursitis. 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 IMPRESSION: Stable cardiac silhouette and mediastinum. Tortuous thoracic aorta. The lungs are mildly hyperexpanded. Tiny calcified granuloma is present within the left upper lobe. No focal consolidation, significant pleural effusion or pneumothorax. Mild dextroscoliosis. SL: [id number] 01/18/2017 [facility] Chest 1view DX CHEST 1 VIEW INDICATION: Cough and congestion since Saturday. COMPARISON: None. FINDINGS: The lungs are clear. The pleura, cardiomediastinal silhouette and bony thorax are normal. IMPRESSION: Negative. END IMPRESSION SL: [id number] 12/21/2016 [facility] Pelvis w Pelvis Transvaginal US ULTRASOUND OF THE PELVIS History: 70-year-old female with left pelvic and perineal pain for the last 4 months. TECHNIQUE: Real-time yin-scale imaging supplemented with color Doppler of the pelvis was performed transabdominally through the distended urinary bladder and with transvaginal technique. COMPARISON: Pelvis magnetic resonance imaging 05/15/2008. FINDINGS: The urinary bladder is moderate distended with normal morphology. The vaginal cuff is unremarkable. The uterus and adnexa appear absent. There is no pelvic mass seen. There is no free fluid in pelvis. Soft tissues of pelvis as visualized are unremarkable. IMPRESSION: Negative pelvis ultrasound exam in patient status post hysterectomy and oophorectomy. No adnexal mass seen. 11/11/2015 [facility] Consultation Notes No Data Provided for This Section Discharge Summaries No Data Provided for This Section History and Physicals No Data Provided for This Section Vital Signs Vital Sign Value Date Comments Source Heart Rate 78 04/10/2019 [facility] Respitory Rate 18 04/10/2019 [facility] Systolic (mm Hg) 145 04/10/2019 [facility] Diastolic (mm Hg) 97 04/10/2019 [facility] Heart Rate 75 04/10/2019 [facility] Respitory Rate 18 04/10/2019 [facility] Systolic (mm Hg) 168 04/10/2019 [facility] Diastolic (mm Hg) 77 04/10/2019 [facility] Systolic (mm Hg) 179 04/10/2019 [facility] Diastolic (mm Hg) 79 04/10/2019 [facility] Heart Rate 75 04/10/2019 [facility] Respitory Rate 18 04/10/2019 [facility] Temperature Oral (F) 98.0 F 04/10/2019 [facility] Height 175.26 cm 04/10/2019 [facility] BMI Calculated 26.56 04/10/2019 [facility] Weight 81.591 04/10/2019 [facility] Temperature Oral (F) 96.9 F 12/04/2017 [facility] Rate 61 12/04/2017 [facility] Systolic (mm Hg) 159 12/04/2017 [facility] Diastolic (mm Hg) 70 12/04/2017 [facility] Respitory Rate 20 12/04/2017 [facility] Weight 84.545 12/03/2017 [facility] Respitory Rate 20 12/03/2017 [facility] Heart Rate 63 12/03/2017 [facility] BMI Calculated 26.74 12/03/2017 [facility] Height 177.8 cm 12/03/2017 [facility] Systolic (mm Hg) 174 12/03/2017 [facility] Diastolic (mm Hg) 76 12/03/2017 [facility] Temperature Oral (F) 97.0 F 12/03/2017 [facility] Heart Rate 79 01/19/2017 [facility] Systolic (mm Hg) 192 01/19/2017 [facility] Diastolic (mm Hg) 81 01/19/2017 [facility] Respitory Rate 18 01/19/2017 [facility] BMI Calculated 26.46 01/18/2017 [facility] Weight 83.636 01/18/2017 [facility] Height 177.8 cm 01/18/2017 [facility] Systolic (mm Hg) 189 01/18/2017 [facility] Diastolic (mm Hg) 80 01/18/2017 [facility] Temperature Oral (F) 97.1 F 01/18/2017 [facility] Respitory Rate 18 01/18/2017 [facility] Heart Rate 76 01/18/2017 [facility] Systolic (mm Hg) 167 12/27/2016 [facility] Diastolic (mm Hg) 72 12/27/2016 [facility] Weight 84.091 12/27/2016 [facility] Temperature Oral (F) 98.1 F 12/27/2016 [facility] Heart Rate 79 12/27/2016 [facility] Respitory Rate 18 12/27/2016 [facility] Height 177.8 cm 12/27/2016 [facility] BMI Calculated 26.6 12/27/2016 [facility] Systolic (mm Hg) 190 12/27/2016 [facility] Diastolic (mm Hg) 86 12/27/2016 [facility] Systolic (mm Hg) 142 12/21/2016 [facility] Diastolic (mm Hg) 86 12/21/2016 [facility] Respitory Rate 20 12/21/2016 [facility] Heart Rate 76 12/21/2016 [facility] Systolic (mm Hg) 156 12/21/2016 [facility] Diastolic (mm Hg) 82 12/21/2016 [facility] Respitory Rate 18 12/21/2016 [facility] Heart Rate 72 12/21/2016 [facility] Weight 84.091 12/21/2016 [facility] BMI Calculated 26.6 12/21/2016 [facility] Respitory Rate 20 12/21/2016 [facility] Systolic (mm Hg) 150 12/21/2016 [facility] Diastolic (mm Hg) 78 12/21/2016 [facility] Height 177.8 cm 12/21/2016 [facility] Temperature Oral (F) 96.2 F 12/21/2016 [facility] Heart Rate 75 12/21/2016 [facility] Weight 70.455 08/24/2013 [facility] BMI Calculated 25.85 08/24/2013 [facility] Height 165.1 cm 08/24/2013 [facility] Systolic (mm Hg) 180 08/24/2013 [facility] Diastolic (mm Hg) 78 08/24/2013 [facility] Respitory Rate 20 08/24/2013 [facility] Heart Rate 84 08/24/2013 [facility] Temperature Oral (F) 97.3 F 08/24/2013 [facility] Encounters Location Location Details Encounter Type Encounter Number Reason For Visit Attending Provider ADM Date DC Date Status Source [facility] Outpatient [id number] UPPER THIGH PAIN, MERALGIA PAESTHETIGA INGRID CARANDANG 03/07/2011 Active [facility] [id number] 04 Dorys Fish Jr 08/24/2013 08/24/2013 [facility] [place] [id number] 01 Isaias Cardoza 11/11/2015 11/12/2015 [facility] [place] [facility] [id number] Elfego Solo 12/21/2016 12/21/2016 [facility] [id number] Javier Strickland 12/27/2016 12/27/2016 [facility] [id number] Mason العلي 01/18/2017 01/19/2017 [facility] [place] [facility] [id number] 02 Raul March 05/31/2017 06/01/2017 [facility] [place] [facility] [id number] Nelson Hanna 12/03/2017 12/04/2017 [facility] [place] [facility] [id number] 03 Raul March 01/27/2018 01/28/2018 [facility] [id number] Primitivo Eng 04/10/2019 04/10/2019 [facility] Procedures Procedure Code Date Perfomer Comments Source Hysterectomy [id number] [facility] Assessment and Plan No Data Provided for This Section Plan of Care No Data Provided for This Section Social History Social History Date Source Social History TypeResponse Smoking Status Never smoker; Previous treatment: None; Exposure to Tobacco Smoke None; Cigarette Smoking Last 365 Days No; Reg Smoking Cessation Counseling No entered on: 04/10/19 04/10/2019 [facility] Social History TypeResponse Smoking Status Never smoker; Previous treatment: None; Exposure to Tobacco Smoke None; Cigarette Smoking Last 365 Days No; Reg Smoking Cessation Counseling No entered on: 12/03/17 12/03/2017 [facility] Family History No Data Provided for This Section Advance Directives No Data Provided for This Section Functional Status No Data Provided for This Section
--- OUTSIDE RECORDS SUMMARY | 2019-10-20 21:34 | XMS REPORT | Summary of Care ---
Author Author [facility] Organization [facility] Address Unknown Phone Unavailable Encounter COLE Falcon(CISCO) [id number] Date(s): 12/21/16 - 12/21/16 [facility] [address] [place] [place], [place] [address]- [phone] Discharge Diagnosis: Cough in adult patient Discharge Disposition: Home or Self Care Attending Physician: Elfego Solo MD Vital Signs 1 2 3 Most recent to oldest [Reference Range]: 177.8 cm (12/21/16 3:55 PM) Height 96.2 DegF *LOW* (12/21/16 3:55 PM) Temperature Oral [96.4-99.1 DegF] 142/86 mmHg *HI* (12/21/16 6:00 PM) 156/82 mmHg *HI* (12/21/16 5:00 PM) 150/78 mmHg *HI* (12/21/16 3:55 PM) Blood Pressure [90-140/60-90 mmHg] 20 BRMIN (12/21/16 6:00 PM) 18 BRMIN (12/21/16 5:00 PM) 20 BRMIN (12/21/16 3:55 PM) Respiratory Rate [14-20 BRMIN] 76 bpm (12/21/16 6:00 PM) 72 bpm (12/21/16 5:00 PM) 75 bpm (12/21/16 3:55 PM) Peripheral Pulse Rate [60-100 bpm] 84.091 kg (12/21/16 3:55 PM) Weight 26.6 m2 (12/21/16 3:55 PM) Body Mass Index Problem List Condition Effective Dates Status Health Status Informan t High blood Resolved pressure(Confirmed) Allergies, Adverse Reactions, Alerts Substance Reaction Severity Status NKDA Active Medications Azithromycin 5 Day Dose Pack 250 mg oral tablet See Instructions, Take 2 tablets by mouth the first day then 1 tablet by mouth d ays 2-5., X 5 day, # 6 tab, 0 Refill(s) Start Date: 12/21/16 Stop Date: 12/26/16 Status: Ordered DuoNeb inhalation solution 3 ml, Route: NEB, Drug Form: SOLN, Dosing Weight 84.091, kg, ONCE, PRN Respirato ry Protocol, Start date: 12/21/16 16:58:00 CDT Start Date: 12/21/16 Stop Date: 12/21/16 Status: Completed predniSONE 20 mg oral tablet 20 mg = 1 tab, PO, BID, X 4 day, # 8 tab, 0 Refill(s) Start Date: 12/21/16 Stop Date: 12/25/16 Status: Ordered ProAir HFA 90 mcg/inh inhalation aerosol with adapter 2 puff, INHALER, Q4H, PRN for wheezing, # 8.5 gm, 0 Refill(s) Start Date: 12/21/16 Status: Ordered Robitussin-AC oral syrup 10 ml, PO, Q4H, PRN for cough, Do not take and drive as this med causes sedation ., # 120 mL, 0 Refill(s) Start Date: 12/21/16 Stop Date: 12/22/17 Status: Ordered Results No data available for this section Immunizations No data available for this section Procedures Procedure Date Related Diagnosis Body Site Hysterectomy Social History Social History Type Response Smoking Status Never smoker; Previous john tment: None; Exposure to Tobacco Smoke None; Cigarette Smoking Last 365 Days No; Reg Smoking Cessation Counseling No Assessment and Plan No data available for this section
--- OUTSIDE RECORDS SUMMARY | 2019-10-20 21:34 | XMS REPORT | CCD ---
Author Author Auto Generated, [facility] Address Unknown Phone Unavailable Care Team Providers Care Tray Server Name Role Phone Man Sykes CP Allergies, Adverse Reactions, Alerts Substance Reaction Status NKDA Active
--- OUTSIDE RECORDS SUMMARY | 2019-10-20 21:34 | XMS REPORT | Summary of Care ---
Author Author [facility] Organization [facility] Address Unknown Phone Unavailable Encounter COLE Falcon(CISCO) [id number] Date(s): 01/18/17 - 01/18/17 [facility] [address], [place], [place] [address]- [phone] Discharge Diagnosis: Asthma Discharge Diagnosis: Cough Discharge Disposition: Home or Self Care Attending Physician: Mason العلي MD Vital Signs Most recent to 1 2 oldest [Reference Range]: Height 177.8 cm (01/18/17 4:30 PM) Temperature Oral 97.1 DegF [96.4-99.1 DegF] (01/18/17 4:30 PM) Blood Pressure 192/81 mmHg 189/80 mmHg [90-140/60-90 mmHg] *HI* *HI* (01/18/17 6:14 PM) (01/18/17 4:30 PM) Respiratory Rate 18 BRMIN 18 BRMIN [14-20 BRMIN] (01/18/17 6:14 PM) (01/18/17 4:30 PM) Peripheral Pulse 79 bpm 76 bpm Rate [60-100 bpm] (01/18/17 6:14 PM) (01/18/17 4:30 PM) Weight 83.636 kg (01/18/17 4:30 PM) Body Mass Index 26.46 m2 (01/18/17 4:30 PM) Problem List Condition Effective Dates Status Health Status Informan t High blood Resolved pressure(Confirmed) Hypercholesteremia(C Resolved onfirmed) Allergies, Adverse Reactions, Alerts Substance Reaction Severity Status NKDA Active Medications albuterol 0.083% inhalation solution 2.49 mg = 3 mL, INHALATION, Q6H, PRN wheezing, coughing, or shortness of breath, # 1 box, 1 Refill(s) Start Date: 01/18/17 Stop Date: 01/19/18 Status: Ordered DuoNeb inhalation solution 6 mL, Route: NEB, Drug Form: SOLN, Dosing Weight 83.636, kg, ONCE, PRN Respirato ry Protocol, Start date: 01/18/17 17:21:00 BLOCK PRESS OPERATOR Start Date: 01/18/17 Stop Date: 01/18/17 Status: Completed Nebulizer 1 ea, MISC, ONCALL, # 1 ea, 0 Refill(s) Start Date: 01/18/17 Status: Ordered predniSONE 60 mg, Route: PO, Drug form: TAB, ONCE, Dosing Weight 83.636, kg, Priority: STAT , Start date: 01/18/17 17:21:00 BLOCK PRESS OPERATOR, Stop date: 01/18/17 17:21:00 BLOCK PRESS OPERATOR Start Date: 01/18/17 Stop Date: 01/18/17 Status: Completed predniSONE 20 mg oral tablet 20 mg = 1 tab, PO, BID, Start Saturday., X 4 day, # 8 tab, 0 Refill(s) Start Date: 01/19/17 Stop Date: 01/23/17 Status: Ordered ProAir HFA 90 mcg/inh inhalation aerosol with adapter 2 puff, INHALER, Q4H, PRN for wheezing, # 8.5 gm, 0 Refill(s) Start Date: 01/18/17 Status: Ordered Results No data available for [...]
--- OUTSIDE RECORDS SUMMARY | 2019-10-20 21:35 | XMS REPORT | Summary of Care ---
Author Author [facility] [place] Organization [facility] Address Unknown Phone Unavailable Encounter HQ Encntr_alias(FIN) [id number] Date(s): 11/11/15 - 11/11/15 [facility] Outpatient Imaging - [address] [phone] Discharge Disposition: Home or Self Care Attending Physician: Isaias Cardoza MD Vital Signs No data available for [...] Related Diagnosis Body Site Hysterectomy Social History No data available for this section Assessment and Plan No data available for this section
--- OUTSIDE RECORDS SUMMARY | 2019-10-20 21:35 | XMS REPORT | Summary of Care ---
Author Author [facility] Organization [facility] Address Unknown Phone Unavailable Encounter HQ Ezekiel(FIN) [id number] Date(s): 12/03/17 - 12/03/17 [facility] [address] [place], [place] [address]- [phone] Encounter Diagnosis Acute head injury (Discharge Diagnosis) - 12/03/17 Unspecified injury of head, initial encounter (Final) - 12/06/17 Fall from bed, initial encounter (Final) - Essential (primary) hypertension (Final) - Discharge Disposition: Home or Self Care Attending Physician: Nelson Hanna MD Vital Signs Most recent to 1 2 oldest [Reference Range]: Height 177.8 cm (12/03/17 5:36 PM) Temperature Oral 96.9 DegF 97.0 DegF [96.4-99.1 DegF] (12/03/17 7:51 PM) (12/03/17 5:36 PM) Blood Pressure 159/70 mmHg 174/76 mmHg [90-140/60-90 mmHg] *HI* *HI* (12/03/17 7:51 PM) (12/03/17 5:36 PM) Respiratory Rate 20 BRMIN 20 BRMIN [14-20 BRMIN] (12/03/17 7:51 PM) (12/03/17 5:36 PM) Peripheral Pulse 61 bpm 63 bpm Rate [60-100 bpm] (12/03/17 7:51 PM) (12/03/17 5:36 PM) Weight 84.545 kg (12/03/17 5:36 PM) Body Mass Index 26.74 m2 (12/03/17 5:36 PM) Problem List Condition Effective Dates Status Health Status Informan t High blood Resolved pressure(Confirmed) Hypercholesteremia(C Resolved onfirmed) Allergies, Adverse Reactions, Alerts Substance Reaction Severity Status NKDA Active Medications Tylenol 650 mg, Route: PO, Drug form: TAB, ONCE, Dosing Weight 84.545, kg, Priority: STA T, Start date: 12/03/17 17:54:00 CDT, Stop date: 12/03/17 17:54:00 CDT Start Date: 12/03/17 Stop Date: 12/03/17 Status: Completed Results No data available for this section [...]
--- OUTSIDE RECORDS SUMMARY | 2019-10-20 21:35 | XMS REPORT | Summary of Care ---
Author Organization Unknown Address Unknown Phone Unavailable Encounter COLE Falcon(CISCO) [id number] Date(s): 08/23/13 - 08/23/13 [facility] [address] Discharge Diagnosis: Acute hyperventilation Discharge Disposition: Home Physician Attending: Dorys Fish Jr, MD Reason for Visit HEADACE/FAINT Vital Signs Most recent to 1 oldest [Reference Range]: Height 165.1 cm (08/23/13 10:46 PM) Temperature Oral 97.3 DegF [96.4-99.1 DegF] (08/23/13 10:46 PM) Systolic Blood 180 mmHg Pressure [90-140 *HI* mmHg] (08/23/13 10:46 PM) Diastolic Blood 78 mmHg Pressure [60-90 (08/23/13 10:46 PM) mmHg] Respiratory Rate 20 BRMIN [14-20 BRMIN] (08/23/13 10:46 PM) Peripheral Pulse 84 bpm Rate [60-100 bpm] (08/23/13 10:46 PM) Weight 70.455 kg (08/23/13 10:46 PM) Body Mass Index 25.85 m2 (08/23/13 10:46 PM) Problem List Condition Effective Dates Status Health Status Informan t High blood Resolved pressure(Confirmed) Allergies, Adverse Reactions, Alerts Substance Reaction Severity Status NKDA Active Medications No data available for this section Medications Administered During Your Visit No data available for this section Immunizations No data available for this section Procedures Procedure Type Body Site Date of Procedure Related Diag nosis Hysterectomy
== END 2019-10-20 21:34 | disposition short-term general hospital (02) ==
LOC: ER 21:00
DX: R06.02 Shortness of breath (principal)

== ENCOUNTER → 2020-08-24 | Day surgery (SDC) | payer MEDICARE ==
[2020-08-22 15:14] LABS: BASOPHILS % 0.3 % (0.0-1.0); EOSINOPHILS # (AUTO) 0.1 (0.0-0.4); EOSINOPHILS % 1.2 % (0.0-6.0); HEMOGLOBIN 10.7 g/dL (12.0-16.0); LYMPHOCYTES # (AUTO) 2.2 (1.0-3.2); LYMPHOCYTES % 37.4 % (18.0-39.1); MEAN CORPUSCULAR HEMOGLOBIN 27.1 pg (28-32); MEAN CORPUSCULAR HGB CONC 30.6 g/dL (31-35); MEAN CORPUSCULAR VOLUME 88.6 fL (81-99); MONOCYTES # (AUTO) 0.7 (0.2-0.8); MONOCYTES % 11.4 % (4.4-11.3); NEUTROPHILS # (AUTO) 2.9 (2.1-6.9); NEUTROPHILS % 49.5 % (38.7-80.0); PLATELET COUNT 224 x10e3/uL (140-360); RED BLOOD COUNT 3.95 x10e6/uL (3.6-5.1); RED CELL DISTRIBUTION WIDTH 13.1 % (11.7-14.4)
[~2020-08-24] MED LIST changes: +LIDOCAINE HCL 2% LOCAL INJ 5 ML SDV VIAL INJ ONE; +OMEGA 3 1,0001 EACH PO; +PROPOFOL IV EMULSION 10 MG/ML 20 ML VIAL ONE; +VITAMIN B PO
[2020-08-24 11:37] VITALS: BP 158/83
== END | disposition home or self-care (01) ==
LOC: OR 08:29
PROVIDERS: ATTEND Internal Medicine Gastroenterology
DX: R10.32 Left lower quadrant pain (principal); Z86.010 Personal history of colon polyps; K57.30 Diverticulosis of large intestine without perforation or abscess without bleeding; K64.8 Other hemorrhoids; K21.9 Gastro-esophageal reflux disease without esophagitis; K44.9 Diaphragmatic hernia without obstruction or gangrene; Z71.3 Dietary counseling and surveillance; E66.3 Overweight; I10 Essential (primary) hypertension; E78.5 Hyperlipidemia, unspecified; Z01.810 Encounter for preprocedural cardiovascular examination; Z68.27 Body mass index [BMI] 27.0-27.9, adult; Z87.19 Personal history of other diseases of the digestive system
CPT/HCPCS: 36415; 45378; 85025; 93005; J2001; J2704